=== PATIENT | male | born 1970 | race Caucasian/White ===

== ENCOUNTER 2017-03-18 02:40 | Observation (INO) | payer BC ==
[~2017-03-18] VITALS: Ht 180.3 cm; Wt 149.5 kg
--- NOTE | ~2017-03-18 | OR ---
PATIENT'S NAME: [facility] AGE: 46 Y [address] 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 POSTOPERATIVE DIAGNOSIS: Right lower quadrant inflammation, possible mesenteric lymphadenitis. PROCEDURE PERFORMED: 1. Diagnostic laparoscopy. 2. Laparoscopic appendectomy. ANESTHESIA: General endotracheal anesthesia. COMPLICATIONS: None. ESTIMATED BLOOD LOSS: Minimal. DRAINS: None. SPECIMENS: Appendix. FINDINGS: The appendix appeared to be grossly normal. We mobilized a little bit of the cecum, so we could see the inflammation. There did appear to be some omentum stuck onto the right lateral abdominal wall, but no masses could be seen associated with it. We carefully looked at the cecum and the colon which looked completely normal. No masses identifiable there. We inspected the mesentery. No grossly enlarged lymph nodes were identified. Although he has a very fat mesentery so it was difficult to see mildly enlarged lymph nodes. No masses were seen. No other abnormalities. The appendix was fairly normal appearing. INDICATIONS FOR PROCEDURE: A 46-year-old gentleman with 3 to 4 day history of right lower quadrant abdominal pain suggestive somewhat appendicitis, who presents for diagnostic laparoscopy and laparoscopic appendectomy. PQRI: 7 g of Invanz IV was given within 1-hour prior to surgery. This was stopped immediately because it was noted that he may get a rash, so it was stopped. Benadryl was given and he was given 500 mg of Levaquin IV was given. [facility] AGE: 46 Y [address] ROOM: [place] [address] LOCATION: [facility] [place] ADMIT DATE: 03/18/2017 OR/Procedure Report DISCHARGE DATE: FAMILY PHYSICIAN: PHYSICIAN, NO ATTENDING PHYSICIAN: Mati CARROLL) SCDs were placed on prior to the case and were on throughout. Lovenox 30 mg subcutaneously was given prior to the case. DETAILS OF PROCEDURE: After informed consent was obtained, the patient was brought to the operating room and placed in supine position. The left arm was tucked. All pressure points were padded. General endotracheal anesthesia was induced. The abdomen was prepped and draped in the usual sterile fashion. A supraumbilical 5-mm incision was made after 0.25% Marcaine was introduced into the wound. A 5-mm bladeless trocar introduced in the abdominal cavity under direct position for the Optiview port by 5-mm 0-degree scope. Pneumoperitoneum was achieved. Abdominal cavity was inspected. No other abnormalities could be noted. The small portion of the omentum was tacked down to the right lower quadrant, right next to the appendix and the cecum. This was taken off with Bovie electrocautery. No associated mass could be seen in that area. The appendix was identified, and noted to be grossly normal. It was taken off the left lateral attachments with sharp dissections and brief burst of electrocautery. It was elevated towards the anterior abdominal wall. A window was created at the base of the mesoappendix with a [place] dissector. An echelon 45-mm stapler with a blue load was then fired across the base of the appendix at the junction with the cecum. The staple line was carefully inspected. It was noted to be intact without bleeding or leak. A vascular load was then fired across the base of the mesoappendix and hemostasis was ensured. The appendix was placed into an Endopouch and removed via the suprapubic trocar site. Trocar reintroduced. Pneumoperitoneum reachieved, some more of the cecum was mobilized off the lateral attachments and the colon and cecum were carefully inspected. No abnormalities were noted of the colon or cecum, could not palpate a mass. I elevated that right colon to try to take a look at its mesentery, no significantly enlarged lymph nodes were identified. Although that was somewhat limited by his significant obesity. The lateral abdominal wall was carefully inspected where the omentum was taken off it as was the omentum. No masses could be seen in that area. Nothing that I could specifically biopsy. The area was thoroughly irrigated. Hemostasis was ensured. The rest of the oral cavity was inspected. No other abnormalities could be noted. An 0 Vicryl suture on a suture passer was then used to close the 11 mm suprapubic trocar site. Under direct visualization from the laparoscope, no bleeding could be noted. Left lower quadrant 5-mm trocar was removed. Under direct visualization from the laparoscope, no bleeding could be noted. Pneumoperitoneum was decompressed. Last trocar was removed and all the wounds were closed with 4-0 Monocryl subcuticular suture. Sterile dressing was applied. The patient was awakened and taken back to recovery in stable condition. PATIENT'S NAME: KAREN NOLASCO [facility] AGE: 46 Y [address] ROOM: [address] [address] LOCATION: [facility] [place] ADMIT DATE: 03/18/2017 OR/Procedure Report DISCHARGE DATE: FAMILY PHYSICIAN: PHYSICIAN, NO ATTENDING PHYSICIAN: Mati CARROLL) MD TIFFANY QUIROS (JAKE)/ernie /[id number] d: t: 03/18/17 1202, OPERATIVE SUMMARY
--- NOTE | ~2017-03-18 | HP ---
PATIENT'S NAME: ANDREW NOLASCO [facility] AGE: 46 Y [address] ROOM: [place] [address] LOCATION: [facility] [place] ADMIT DATE: 03/18/2017 History & Physical DISCHARGE DATE: FAMILY PHYSICIAN: PHYSICIAN, NO ATTENDING PHYSICIAN: Mati ALVARADO (Anthony) DATE OF SERVICE: 03/18/2017 CHIEF COMPLAINT: Abdominal pain. HISTORY OF PRESENT ILLNESS: Andrew is a very pleasant, 46-year-old gentleman with a 4-day history of generalized abdominal pain that about 3 days ago, it migrated over the right side. It was initially quite mild and tolerable but progressed over the last 3 days, more significant pain in the right lower quadrant. 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 He denies any other aggravating or alleviating factors. Denies any associated vomiting or changes in bowel habits. Denies any change in urinary symptoms, recent travel, or sick contacts. He has never had pain of this type before. He describes the pain as a pressure-like pain in the right lower quadrant. ALLERGIES: NO KNOWN DRUG ALLERGIES. MEDICATIONS: Takes: 1. Levothyroxine. 2. Multivitamin. Please see hospital list for complete list and dosages. PAST MEDICAL HISTORY: He denies any previous abdominal operations. Denies any cardiac, pulmonary, hepatic, renal disease or dysfunction. Denies any history of blood clots or pulmonary embolisms. He does have a history of hypothyroidism. FAMILY HISTORY: Denies any history of inflammatory bowel disease or colorectal malignancies. His mother did have a history of pulmonary embolisms and pulmonary fibrosis as well as history of diverticulitis. SOCIAL HISTORY: He is . 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 His accompanies him here today. He chews tobacco. He is a previous smoker, but quit about 20 years ago. Drinks alcohol on the weekends only about 5-6 beers when he does PATIENT'S NAME: ANDREW NOLASCO [facility] AGE: 46 Y [address] ROOM: [place] [address] LOCATION: [facility] [place] ADMIT DATE: 03/18/2017 History & Physical DISCHARGE DATE: FAMILY PHYSICIAN: PHYSICIAN, NO ATTENDING PHYSICIAN: Mati ALVARADO) nikko. Never had withdrawal symptoms. REVIEW OF SYSTEMS: A full 10-point review of system was discussed with the patient, was negative except for as discussed above. He denies chest pain, shortness of breath, or changes in urinary symptoms. PHYSICAL EXAMINATION: GENERAL: This is a 46-year-old gentleman, afebrile. VITAL SIGNS: Stable. No apparent distress. HEENT: Sclerae anicteric. NECK: Supple. HEART: Rate and rhythm regular. LUNGS: Breathing nonlabored. ABDOMEN: Soft, nondistended, tender to palpation in the right lower quadrant. Positive rebound. Negative Rovsing, negative obturator, and negative psoas sign. EXTREMITIES: Bilateral lower extremities are warm. Brisk capillary refill without evidence of significant edema. No obvious calf tenderness or swelling. No obvious skin lesions or rashes. RADIOLOGY REVIEW: CT scan of the abdomen and pelvis shows significant amount of fat stranding in the cecum and along the right colon mesentery with some lymphadenopathy. The base of the appendix is dilated to 8 mm but very surprisingly though, the distal lumen of the appendix is not grossly abnormal. There is air that still fills the appendiceal lumen which is somewhat suspicious but is officially read as acute appendicitis per report. No abnormalities in the liver. Otherwise no other evidence of obstruction or other acute abnormalities. Laboratory evaluation: Urinalysis was normal. The sodium is 139, potassium 3.4, chloride 101, CO2 is 24, BUN is 8, creatinine 1.24. Liver function tests are perfectly normal as is amylase and lipase. C-reactive protein is elevated at 8.8. White count is 11.2, hemoglobin 15.3, hematocrit 44.6, platelets are 192. ASSESSMENT AND PLAN: A 46-year-old gentleman with 4 days of right lower quadrant abdominal pain that is clinically and radiographically somewhat suspicious for acute appendicitis, although has somewhat of an unusual appearance to the appendix as the distal portion of it is fairly normal appearing which is somewhat suspicious. Nonetheless, I think the possibility of acute appendicitis remains high and I recommend proceeding with laparoscopic appendectomy. I did have a pretty prolonged discussion with him and his about the possibility that this may be something other than acute appendicitis but there is PATIENT'S NAME: ANDREW NOLASCO [facility] AGE: 46 Y [address] ROOM: [address] [address] LOCATION: [facility] [place] ADMIT DATE: 03/18/2017 History & Physical DISCHARGE DATE: FAMILY PHYSICIAN: PHYSICIAN, NO ATTENDING PHYSICIAN: Mati ALVARADO (Anthony) definitely an inflammatory process in the right colonic mesentery and the cecal base. I explained of the possibility because most of this involved the base of the appendix and the cecum that we may have to do a partial cecectomy. I also explained that because of the unusual appearance, I am concerned that there may be an underlying other process going on. It may be of a neoplastic process. We discussed the possibility of a right hemicolectomy and the risks and benefits of that; Of course explained that without an obvious abnormality, I would not proceed with a right colon resection and if I could not clearly elucidate other abnormality that we will just go ahead and perform an appendectomy and once he is healed up in the next 3 to 4 weeks, we will have him get a colonoscopy to make sure that there are no other underlying issues. Of course if this is indeed acute appendicitis and the amount of stranding lymphadenopathy in the in the right hemicolon, is appropriate for an inflammatory process such as acute appendicitis or this also could represent some type of viral gastroenteritis such as mesenteric lymphadenitis, which often mimics appendicitis. Either way, we discussed the possibility of a right hemicolectomy if we were to find some type of obvious abnormality in the cecum that was concerning for malignancy. He and his understands the risks and benefits of proceeding with this approach, discussed the alternatives as well. They had all their questions answered to their satisfaction and wishes to proceed as above. AISHA) MD TIFFANY ALVARADO/ernie /[id number] D: T: [id number] HISTORY & PHYSICAL
--- NOTE | ~2017-03-18 | DS ---
PATIENT'S NAME: ANDREW NOLASCO [facility] AGE: 46 Y [address] ROOM: [address] [address] LOCATION: [facility] [place] ADMIT DATE: 03/18/2017 Discharge Summary DISCHARGE DATE: 03/18/2017 FAMILY PHYSICIAN: PHYSICIAN, NO ATTENDING PHYSICIAN: Nahid Carroll) FINAL DIAGNOSIS: Right lower quadrant abdominal pain. HOSPITAL COURSE: Andrew was admitted with 4-day history of right lower quadrant abdominal pain, somewhat suggestive of acute appendicitis, but the radiographic picture was not exactly conclusive. He underwent diagnostic laparoscopy and laparoscopic appendectomy, but no evidence of obvious acute appendicitis was found. Postoperatively, his pain was significantly improved, and he was now ready for discharge. At the time of surgery, a thorough search for evidence of masses or other explanations for his pain was performed, but no other obvious findings were noted. He did have significant lymphadenitis on CT scan and some inflammatory changes noted on CT scan that were somewhat worrisome; so as an outpatient, he is going to have a colonoscopy and a repeat CAT scan in about one month to make sure all these issues have resolved. He and his understand the importance of this followup. He will also follow up with me in the [facility] in about four weeks after these tests have been completed. He understands if his pain worsens or fails to improve, he needs to contact us immediately or return to the emergency room. Postoperatively, later in the afternoon, his pain was significantly better. The wounds were clean, dry, and intact. Abdomen was soft, nondistended, minimally tender to palpation and appropriately so, and he was ready for discharge. He was tolerating diet, and he was ready for discharge. He was given appropriate followup and discharge instructions. FINAL DIAGNOSIS: Right lower quadrant pain, status post appendectomy. MD TIFFANY QUIROS (JAKE)/ernie /[id number] d: t: 03/19/17 0253, DISCHARGE SUMMARY
[2017-03-18] MEDS ORDERED: MULTI-VITAMIN1 EACH PO (04:01)
[2017-03-18] MEDS ORDERED: LEVOTHROID (SY88 MCG PO (04:01)
[2017-03-18] MEDS ORDERED: NORCO 5-325 TA1 EACH PO (16:52)
== END 2017-03-18 18:00 | disposition disaster alternative care site (69) ==
LOC: GMSU 03:26
PROVIDERS: ADMIT Surgery
PROC: 0DTJ4ZZ Resection of Appendix, Percutaneous Endoscopic Approach (ICD-10-PCS; principal; 2017-03-18)
DX: K38.8 Other specified diseases of appendix (principal); G47.33 Obstructive sleep apnea (adult) (pediatric); Z98.890 Other specified postprocedural states; Z79.899 Other long term (current) drug therapy; Z87.891 Personal history of nicotine dependence
CPT/HCPCS: G0378; J1335; J1650; J1956; J3010; J7120